=== PATIENT | male | born 1970 | race Hispanic/Latino ===

== ENCOUNTER 2017-02-23 19:57 | Emergency (ER) | payer OTHER ==
[2017-02-23 20:38] LABS: HEMATOCRIT 50.2 % (42.0-54.0); HEMOGLOBIN 17.3 g/dL (14.0-18.0); MEAN CELL VOLUME 95.8 fL (80.0-100.0); MEAN CORPUS. HGB CONCENTRATION 34.5 g/dL (32.0-36.0); MEAN PLATELET VOLUME 7.1 fL (7.4-10.4); PLATELET COUNT 212 X 10^3uL (130-440); RED BLOOD COUNT 5.24 X 10^6uL (4.20-6.10); WHITE BLOOD COUNT 8.8 X 10^3uL (3.9-10.7)
[2017-02-23 20:46] LABS: BLOOD UREA NITROGEN 14 mg/dL (9-20); CALCIUM 9.1 mg/dL (8.4-10.2); CHLORIDE 103 mmol/L (98-107); CREATININE 0.7 mg/dL (0.7-1.3); EST GLOMERULAR FILTRATION RATE > 60 mL/min; GLUCOSE 89 mg/dL (70-100); POTASSIUM 4.2 mmol/L (3.5-5.1); SODIUM 147 mmol/L (137-145)
[2017-02-23 20:56] LABS: ETHYL ALCOHOL 433 mg/dL (<10)
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
== END 2017-02-23 21:32 | disposition other institution (70) ==
LOC: ER 19:57
DX: F10.129 Alcohol abuse with intoxication, unspecified (principal); Z04.1 Encounter for examination and observation following transport accident; V48.5XXA Car driver injured in noncollision transport accident in traffic accident, initial encounter; Y92.410 Unspecified street and highway as the place of occurrence of the external cause; Z74.3 Need for continuous supervision
CPT/HCPCS: 80048; 80320; 85027; 99283